=== PATIENT | male | born 1955 | race Caucasian/White ===

== ENCOUNTER 2017-03-26 08:42 | Emergency (ER) | payer OTHER ==
--- NOTE | 2017-03-26 10:08 | UC ---
Sanju Shah Rebecca, scribed for Tejal Gray MD on 03/26/17 at 0949 . Respiratory Complaint HPI - HPI Summary HPI Summary: Pt is a 61 y/o M who presents to [facility] c/o slightly productive cough for 3 weeks. Sx aggravated by laying down, slightly alleviated by NyQuil which he takes at night. Additionally c/o SOB characterized as dyspnea at exertion and fatigue. Denies decreased appetite, fever, sore throat, N/V/D, abd pain and rash. No recent known sick contact. PMHx seasonal allergies. Has a PCP who he sees every 2 years. - History of Current Complaint Chief Complaint: UCRespiratory Stated Complaint: COUGH Time Seen by Provider: 03/26/17 09:46 Hx Obtained From: Patient Onset/Duration: Lasting Weeks - 3 weeks, Still Present Severity Currently: None Pain Intensity: 0 Pain Scale Used: 0-10 Numeric Character: Cough: Productive - slightly Aggravating Factors: Other - Laying down Alleviating Factors: OTC Meds - NyQuil Associated Signs And Symptoms: Positive: Dyspnea - Allergies/Home Medications Allergies/Adverse Reactions: Allergies Allergy/AdvReac Type Severity Reaction Status Date / Time No Known Allergies Allergy Verified 03/26/17 08:54 PMH/Surg Hx/FS Hx/Imm Hx - Additional Past Medical History Additional PMH: PMHx: amblyopia NEGATIVE PMHx: asthma Previously Healthy: Yes - States usual blood pressure is 130/70 Respiratory History: Other Other Respiratory History: Seasonal allergies - Surgical History Surgical History: None - Family History Known Family History: Negative: Diabetes - Social History Occupation: Employed Full-time Lives: With Family Alcohol Use: Rare Substance Use Type: None Smoking Status (MU): Never Smoked Tobacco Review of Systems Constitutional: Fatigue Skin: Negative Eyes: Negative ENT: Negative Respiratory: Shortness Of Breath, Cough Cardiovascular: Negative Gastrointestinal: Negative Genitourinary: Negative Motor: Negative Neurovascular: Negative Musculoskeletal: Negative Neurological: Negative Psychological: Negative All Other Systems Reviewed And Are Negative: Yes - Comments Additional Review of Systems Comments: NEGATIVE: Decreased appetite, fever, sore throat, N/V/D, abd pain and rash Physical Exam Triage Information Reviewed: Yes Appearance: Ill-Appearing - looks fatigued, mildly unwell Vital Signs: Initial Vital Signs Temp 98.0 F 10/19/17 08:51 Pulse 72 03/26/17 08:51 Resp 20 03/26/17 08:51 BP 176/94 03/26/17 08:51 Pulse Ox 96 03/26/17 08:51 Eyes: Positive: Conjunctiva Inflamed - right eye injection ENT: Positive: Pharynx normal, TMs normal Neck: Positive: Supple, Nontender, No Lymphadenopathy Respiratory: Positive: Decreased breath sounds - to both bases, with crackles left greater than right base. Cardiovascular: Positive: RRR, No Murmur Abdomen Description: Positive: Nontender, No Organomegaly Musculoskeletal Exam: Normal Neurological Exam: Normal Psychological Exam: Normal Skin Exam: Normal Diagnostic Evaluation - Laboratory O2 Sat by Pulse Oximetry: 96 Respiratory Course/Dx - Course Course Of Treatment: Pt is a 61 y/o M who presents to [facility] with a 3 week history of slightly productive cough for 3 weeks accompanied by SOB characterized as dyspnea at exertion and fatigue. Elevated BP noted. Pt medications reviewed this visit. - Differential Dx/Diagnosis Provider Diagnoses: left lower lobe pneumonia Discharge - Discharge Plan Condition: Stable Disposition: HOME Prescriptions: DOXYcycline CAP(*) [DOXYcycline 100MG CAP(*)] 100 mg PO BID #20 cap Patient Education Materials: Pneumonia (ED) Referrals: Dwight Webster MD [Primary Care Provider] - Additional Instructions: Begin use of doxycycline for cough and chest exam suggestive of pneumonia. Ensure increased rest and fluids. Continue nyquil for cough. Your blood pressure today is elevated compared to your reported baseline. Please have a repeat blood pressure within a couple of weeks. The documentation as recorded by the Sanju ji Rebecca accurately reflects the service I personally performed and the decisions made by me, Tejal Gray MD.
== END 2017-03-26 10:10 | disposition home or self-care (01) ==
LOC: UCEAST 08:42
DX: J18.9 Pneumonia, unspecified organism (principal); J30.9 Allergic rhinitis, unspecified
CPT/HCPCS: 99202; G0463